=== PATIENT | male | born 2000 | race Caucasian/White ===

== ENCOUNTER 2024-01-12 09:10 | Emergency (ER) | payer BC ==
--- NOTE | 2024-01-12 10:22 | EDPHYS ---
Physician Documentation [facility] Name: Janusz Hayes Age: 23 yrs Sex: Male : 2000 Arrival Date: 01/12/2024 Time: 09:10 Bed 10 Private MD: ED Physician Christopher Oconnell HPI: 01/11 09:26 This 23 yrs old Male presents to ER via Ambulatory with complaints of Cat Bite - attack.bo1 09:26 Secondary to the bite the patient reports Injuries to the left ear, left finger and bo1 right hand.. Historical: - Allergies: 09:20 No Known Allergies; aa5 - PMHx: 09:20 Asthma; Migraine; aa5 - PSHx: 09:20 None; aa5 - Immunization history:: Last tetanus immunization: unknown. - Infectious Disease History:: Denies. - Social history:: Smoking status: Patient denies any tobacco usage or history of. ROS: 10:11 Constitutional: Negative for fever, chills, and weight loss, bo1 Exam: 10:11 ENT: External ear(s): Minor laceration to the left ear lobe- lower area. Approximates, bo1 no need for suture repair., swelling, that is minimal, 10:11 Musculoskeletal/extremity: Minor punctures to the right index finger not involving joints. Multiple minor lacerations/scratches to the hand and other digits. Minor lacerations/scratches to the left index finger. All fingers are FROM with intact NV signs.. Vital Signs: 09:20 BP 129 / 84; Pulse 108; Resp 18 S; Temp 97(TE); Pulse Ox 99% on R/A; Weight 91.63 kg aa5 (R); Height 5 ft. 8 in. (R); 09:20 Body Mass Index 30.71 (91.63 kg, 172.72 cm) aa5 MDM: 09:26 Patient medically screened. bo1 10:16 Differential diagnosis: superficial laceration. ED course: Pt has had a tetanus bo1 vaccination at age 15 and wishes to wait 2 years to be up to date.. 01/11 10:17 Order name: Wound Care; Complete Time: 10:49 bo1 Administered Medications: No medications were administered Disposition Summary: 01/12/24 10:21 Discharge Ordered Notes: Location: Home bo1 Problem: new bo1 Condition: Stable bo1 Diagnosis - Bitten by cat bo1 Followup: bo1 - With: Private Physician - When: 2 - 3 days - Reason: Wound Recheck Discharge Instructions: - Discharge Summary Sheet bo1 Forms: - Medication Reconciliation Form bo1 - Antibiotic Education bo1 - Prescription Opioid Use bo1 - Patient Portal Instructions bo1 - Leadership Thank You Letter bo1 Prescriptions: - Augmentin 875-125 mg Oral Tablet - take 1 tablet ORAL route every 12 hours for 10 days; 20 tablet; Refills: 0, bo1 Product Selection Permitted Signatures: Valerie Cage, RN RN aa5 OeiChristopher MD MD bo1
--- NOTE | 2024-01-12 10:22 | ER ---
Nurse's Notes [facility] Name: Janusz Hayes Age: 23 yrs Sex: Male : 2000 Arrival Date: 01/12/2024 Time: 09:10 Bed 10 Private MD: Diagnosis: Bitten by cat Presentation: 01/11 09:20 Chief complaint: Patient states: "I have a stray cat that had been looking to adopt and aa5 today he freaked out and he bit and scratched me". Bite noted to left earlobe and right palm of hand. No active bleeding noted. 09:20 Coronavirus screen: At this time, the client does not indicate any symptoms associated aa5 with coronavirus-19. Ebola Screen: Patient denies travel to an Ebola-affected area in the 21 days before illness onset. Initial Sepsis Screen: Does the patient meet any 2 criteria? No. Patient's initial sepsis screen is negative. Does the patient have a suspected source of infection? No. Patient's initial sepsis screen is negative. Risk Assessment: Do you want to hurt yourself or someone else? Patient reports no desire to harm self or others. Onset of symptoms was January 12, 2024. 09:20 Acuity: LUCIE 4 aa5 09:20 Method Of Arrival: Ambulatory aa5 Historical: - Allergies: 09:20 No Known Allergies; aa5 - PMHx: 09:20 Asthma; Migraine; aa5 - PSHx: 09:20 None; aa5 - Immunization history:: Last tetanus immunization: unknown. - Infectious Disease History:: Denies. - Social history:: Smoking status: Patient denies any tobacco usage or history of. Screenin:00 [facility] ED Fall Risk Assessment (Adult) History of falling in the last 3 months, hb including since admission No falls in past 3 months (0 pts) Confusion or Disorientation No (0 pts) Intoxicated or Sedated No (0 pts) Impaired Gait No (0 pts) Mobility Assist Device Used No (0 pt) Altered Elimination No (0 pt) Score/Fall Risk Level 0 - 2 = Low Risk Oriented to surroundings, Maintained a safe environment, Educated pt \\T\\ family on fall prevention, incl call for assistance when getting out of bed. Abuse screen: Denies threats or abuse. Denies injuries from another. Nutritional screening: No deficits noted. Tuberculosis screening: No symptoms or risk factors identified. Assessment: 09:49 Reassessment: Reported cat bite to [facility] Department, stated they will aa5 send officer here to speak to patient. . 10:32 Reassessment: Contacted [facility] Department to check for an update, aa5 instructed to provide pt with their telephone number and instruct pt to call PD when he gets home. . 10:46 General: Appears in no apparent distress. Behavior is calm, cooperative. Pain: Pain hb currently is 3 out of 10 on a pain scale. Neuro: Level of Consciousness is awake, alert, obeys commands, Oriented to person, place, time, situation. Cardiovascular: Patient's skin is warm and dry. Respiratory: Respiratory effort is even, unlabored, Respiratory pattern is regular, symmetrical. GI: No signs and/or symptoms were reported involving the gastrointestinal system. : No signs and/or symptoms were reported regarding the genitourinary system. EENT: No signs and/or symptoms were reported regarding the EENT system. Derm: Skin is pink, warm \\T\\ dry. Musculoskeletal: No signs and/or symptoms reported regarding the musculoskeletal system. Injury Description: multiple shallow puncture wounds noted to left ear and left hand, small lacerations noted to left ear, left hand, right forearm, and right hand. Vital Signs: 09:20 BP 129 / 84; Pulse 108; Resp 18 S; Temp 97(TE); Pulse Ox 99% on R/A; Weight 91.63 kg aa5 (R); Height 5 ft. 8 in. (R); 09:20 Body Mass Index 30.71 (91.63 kg, 172.72 cm) aa5 ED Course: 09:11 Patient arrived in ED. im 09:20 Arm band placed on. aa5 09:23 Triage completed. aa5 09:24 Christopher Oconnell MD is Attending Physician. bo1 10:48 Patient has correct armband on for positive identification. Provided Education on: hb wound care, follow up, medications. 10:48 No provider procedures requiring assistance completed. Patient did not have IV access hb during this emergency room visit. 10:49 Wound care: to puncture located on left ear, right hand, left hand and right arm was hb cleansed with CHX and saline Patient tolerated well. Administered Medications: No medications were administered Medication: 10:47 VIS not applicable for this client. hb Outcome: 10:21 Discharge ordered by bo1 10:48 Discharged to home ambulatory, 10:48 Condition: stable 10:48 Discharge instructions given to patient, family, Instructed on discharge instructions, follow up and referral plans. medication usage, Demonstrated understanding of instructions, follow-up care, medications, Prescriptions given X 1, 10:49 Patient left the ED. Signatures: Valerie Cage RN RN aa5 Janna Cuevas RN RN Crystal Rivas Benjamin, MD MD bo1 Corrections: (The following items were deleted from the chart) 09:25 09:20 Chief complaint: Patient states: "I have a stray cat that had been looking to [facility] adopt and today he freaked out and he bit and scratched me". No active bleeding noted. aa5 09:47 09:20 Chief complaint: Patient states: "I have a stray cat that had been looking to [facility] adopt and today he freaked out and he bit and scratched me". Bite noted to left earlobe and right palm of hand. No active bleeding noted. aa5
[2024-01-12 11:21] VITALS: BP 129/84; TEMP 97; O2SAT 99
== END 2024-01-12 10:49 | disposition home or self-care (01) ==
LOC: ER 09:10
DX: S61.230A Puncture wound without foreign body of right index finger without damage to nail, initial encounter (principal); S01.312A Laceration without foreign body of left ear, initial encounter; W55.01XA Bitten by cat, initial encounter

== ENCOUNTER 2025-06-13 06:15 | Emergency (ER) | payer BC ==
--- OUTSIDE RECORDS SUMMARY | 2025-06-13 06:18 | XMS REPORT | Continuity of Care Document ---
Author Name Unknown Address [address] [facility] [place] [address] [facility] [place] Address [address] [facility] [address] [place] [address] Care Team Providers Care Circulation Assistant Name Role Phone Pcp, Patient Does Not Have A Primary Care Physic daily Spencer Dailey MD Attending Clinician SPENCER DAILEY Attending Clinician Unavailgrace Gutierrez RN, Heidi Attending Clinician Unavail able Kaveh Mccoy MD Attending Clinician [phone] SPENCER DAILEY Admitting Clinician UnavailSpencer Mazariegos MD Admitting Clinician Payers Payer Name Policy Type Policy Number Effective Date Expirati on Date Source Problems Condition Name Condition Details Condition Category Status Onset Date Resolution Date Last Treatment Date Treating Clinician Comments Source Obesity (BMI 30-39.9) Obesity (BMI 30-39.9) Disease Active 10-15 00:00: 00 [facility] Acute foreign body of left foot, subsequent encounter Acute foreign body of left foot, subsequent encounter Disease Active 09-26 00:00: 00 [facility] Allergies, Adverse Reactions, Alerts Allergy Name Allergy Type Status Severity Reaction(s) Onset Date Inactive Date Treating Clinician Comments Source LATEX DRUG INGREDI Active Med Swelling 10-15 00:00: 00 [facility] Latex Drug Allergy Active Swelling 10-15 00:00: 00 [facility] NO KNOWN ALLERGIE S Drug Class Active [facility] Social History Social Habit Start Date Stop Date Quantity Comments Source Sexual orientation U [facility] History of Social function 2024-12-16 00:00:00 2024-12-16 00:00:00 [facility] Tobacco use and exposure 2024-09-02 00:00:00 2024-09-02 00:00:00 Smokeless tobacco non-user [facility] Sex assigned at 2000 00:00:00 2000 00:00:00 [facility] Smoking Status Start Date Stop Date Source Never smoked tobacco [facility] Medications Ordered Medication Name Filled Medication Name Start Date Stop Date Current Medication? Ordering Clinician Indication Dosage Frequency Signature (SIG) Comments Components Source HYDROcodone -acetaminop hen 10-325 mg tablet 10-28 00:00: 00 Yes [id number] 1{tbl} Take 1 tablet by mouth every 6 (six) hours as needed for Pain (scale 4-6) or Pain (scale 7-10). Indication s: acute pain [facility] traMADoL 50 mg tablet 10-28 00:00: 00 Yes [id number] 50mg Take 1 tablet by mouth every 6 (six) hours as needed for Pain (scale 4-6) or Pain (scale 7-10). Indication s: acute pain [facility] lactated ringers IV infusion 150 mL 10-15 19:30: 00 10-15 22:13 :14 No 150mL at 75 mL/hr, 150 mL, IV Infusion, CONTINUOUS , Starting on Mon10/15/24 at 1330, Until Mon10/15/24 at 1613, Routine, PACU [facility] hydralAZINE (APRESOLINE ) injection 5 mg 10-15 19:17: 01 10-15 22:13 :13 No 5mg 5 mg, Slow IV Push, Q20MIN PRN, 2 doses, Starting on Mon10/15/24 at 1317, Until Mon10/15/24 at 1613, Routine, Other, SBP > 170mmHg or DBP > 90mmHg, PACU [facility] labetaloL (NORMODYNE) 5 mg/mL injection 5 mg 10-15 19:17: 10-15 22:13 :13 No 5mg 5 mg, Slow IV Push, Q15MIN PRN, 2 doses, Starting on Mon10/15/24 at 1317, Until Mon10/15/24 at 1613, Routine, SBP greater than 170mmHg or DBP greater than 90mmHg., PACU [facility] meperidine (DEMEROL) injection 12.5 mg 10-15 19:17: 10-15 22:13 :14 No 12.5mg 12.5 mg, Slow IV Push, PRN, 1 dose, Starting on Mon10/15/24 at 1317, Until Mon10/15/24 at 1613, Routine, shivering, PACU, Enter indication for use: Reduce postoperat bertin shivering, crew team member approving Restricted medication : ANSC [facility] morpHINE (4 mg/mL) injection 4 mg 10-15 19:17: 10-15 22:13 :14 No 4mg 4 mg, Slow IV Push, [id number], 3 doses, Starting on Mon10/15/24 at 1317, Until Mon10/15/24 at 1613, Routine, Pain (scale 7-10), PACU [facility] FENTanyl (PF) (SUBLIMAZE) injection 25 mcg 10-15 19:17: 10-15 22:13 :14 No 25ug 25 mcg, Slow IV Push, Q5MIN PRN, 4 doses, Starting on Mon10/15/24 at 1317, Until Mon10/15/24 at 1613, Routine, Pain Scale 4-6, PACU [facility] morpHINE injection 2 mg 10-15 19:17: 10-15 22:13 :14 No 2mg 2 mg, Slow IV Push, Q5MIN PRN, 3 doses, Starting on Mon10/15/24 at 1317, Until Mon10/15/24 at 1613, Routine, Pain (scale 4-6), PACU [facility] HYDROcodone -acetaminop hen (NORCO 5) tablet 1 tablet 10-15 19:17: 01 10-15 22:13 :14 No 1{tbl} 1 tablet, Oral, PRN, 1 dose, Starting on Mon10/15/24 at 1317, Until Mon10/15/24 at 1613, Routine, Pain (scale 1-3), PACU [facility] metoclopram anisa HCl (REGLAN) injection 10 mg 10-15 19:17: 01 10-15 22:13 :14 No 10mg 10 mg, Slow IV Push, PRN, 1 dose, Starting on Mon10/15/24 at 1317, Until Mon10/15/24 at 1613, Routine, Nausea and Vomiting (N/V), PACU [facility] ondansetron (ZOFRAN (PF)) injection 10-15 19:00: 00 10-15 19:15 :00 No Slow IV Push, ONCE INTRA PROCEDURE, Starting on Mon10/15/24 at 1300, Until Mon10/15/24 at 1315, Administer over 2-5 Minutes, Intra-op [facility] ketorolac (TORADOL) injection 10-15 19:00: 00 10-15 19:15 :00 No Slow IV Push, ONCE INTRA PROCEDURE, Starting on Mon10/15/24 at 1300, Until Mon10/15/24 at 1315, Routine, Intra-op [facility] metoclopram anisa HCl (REGLAN) injection 10-15 19:00: 00 10-15 19:15 :00 No Intravenou s, ONCE INTRA PROCEDURE, Starting on Mon10/15/24 at 1300, Until Mon10/15/24 at 1315, Routine, Intra-op [facility] bupivacaine (preserv free) (SENSORCAIN E MPF) 0.25 % (2.5 mg/mL) injection 10-15 18:59: 00 10-15 19:15 :21 No PRN, Starting on Mon10/15/24 at 1259, Until Mon10/15/24 at 1315, Routine, Intra-op [facility] dexamethaso ne (DECADRON PHOSPHATE) 4 mg/mL injection 10-15 18:49: 00 10-15 19:15 :00 No IV Push, ONCE INTRA PROCEDURE, Starting on Mon10/15/24 at 1249, Until Mon10/15/24 at 1315, Routine, Intra-op [facility] ceFAZolin (ANCEF) injection 10-15 18:45: 00 10-15 19:15 :00 No Slow IV Push, ONCE INTRA PROCEDURE, Starting on Mon10/15/24 at 1245, Until Mon10/15/24 at 1315, DINA, [facility]-op [facility] propofoL IV infusion 10-15 18:40: 00 10-15 19:15 :00 No Slow IV Push, ONCE INTRA PROCEDURE, Starting on Mon10/15/24 at 1240, Intra-op [facility] lidocaine 1% (XYLOCAINE) 100 mg/10 mL (1 %) injection 10-15 18:40: 00 10-15 19:15 :00 No Slow IV Push, ONCE INTRA PROCEDURE, Starting on Mon10/15/24 at 1240, Until Mon10/15/24 at 1315, Routine, Intra-op [facility] midazolam (VERSED) injection 10-15 18:37: 00 10-15 19:15 :00 No IV Push, ONCE INTRA PROCEDURE, Starting on Mon10/15/24 at 1237, Until Mon10/15/24 at 1315, Routine, Intra-op [facility] FENTanyl (PF) (SUBLIMAZE) injection 10-15 18:37: 00 10-15 19:15 :00 No Slow IV Push, ONCE INTRA PROCEDURE, Starting on Mon10/15/24 at 1237, Until Mon10/15/24 at 1315, Routine, Intra-op [facility] lactated ringers IV infusion 1,000 mL 10-15 15:00: 10-15 18:37 :00 No 1000mL at 42 mL/hr, 1,000 mL, IV Infusion, ONCE, 1 dose, On Mon10/15/24 at 0900, Routine, DSU Pre-op [facility] methocarbam oL 750 mg tablet 10-15 00:00: 00 11-15 05:59 :00 No [id number] 750mg Take 1 tablet by mouth in the morning and 1 tablet at noon and 1 tablet in the evening. Do all this for 30 days. [facility] aspirin 325 mg tablet 10-15 00:00: 11-13 05:59 :00 No [id number] 325mg Take 1 tablet by mouth in the morning and 1 tablet in the evening. Take with meals. Do all this for 28 days. [facility] docusate 100 mg capsule 10-15 00:00: 00 10-26 05:59 :00 No [id number] 100mg Take 1 capsule by mouth in the morning and 1 capsule in the evening. Do all this for 10 days. [facility] ondansetron (ZOFRAN) 4 mg tablet 10-15 00:00: 00 10-26 05:59 :00 No [id number] 4mg Take 1 tablet by mouth every 6 (six) hours for 10 days. [facility] traMADoL 50 mg tablet 10-15 00:00: 10-23 05:59 :00 No [id number] 50mg Take 1 tablet by mouth every 6 (six) hours as needed for Pain (scale 4-6) or Pain (scale 7-10) for up to 7 days. Indication s: acute pain [facility] HYDROcodone -acetaminop hen 10-325 mg tablet 10-15 00:00: 00 10-23 05:59 :00 No [id number] 1{tbl} Take 1 tablet by mouth every 6 (six) hours as needed for Pain (scale 4-6) or Pain (scale 7-10) for up to 7 days. Indication s: acute pain [facility] nortriptyli ne 10 mg capsule 2023-09 00:00: 00 Yes 10mg Take 1 capsule by mouth in the morning. [facility] Vital Signs Vital Name Observation Time Observation Value Comments [facility] Systolic blood pressure 2024-12-16 16:15:00 107 mm[Hg] [facility] Diastolic blood pressure 2024-12-16 16:15:00 80 mm[Hg] [facility] Heart rate 2024-12-16 16:15:00 71 /min [facility] Body temperature 2024-12-16 16:15:00 36.28 Radah [facility] Body height 2024-12-16 16:15:00 172.7 cm [facility] Body weight 2024-12-16 16:15:00 96.843 kg [facility] BMI 2024-12-16 16:15:00 32.46 kg/m2 [facility] Systolic blood pressure 2024-10-28 17:41:00 129 mm[Hg] [facility] Diastolic blood pressure 2024-10-28 17:41:00 87 mm[Hg] [facility] Heart rate 2024-10-28 17:41:00 100 /min [facility] Body temperature 2024-10-28 17:41:00 36.17 Radha [facility] Body height 2024-10-28 17:41:00 172.7 cm [facility] Body weight 2024-10-28 17:41:00 94.348 kg [facility] BMI 2024-10-28 17:41:00 31.63 kg/m2 [facility] Systolic blood pressure 2024-10-15 20:00:00 120 mm[Hg] [facility] Diastolic blood pressure 2024-10-15 20:00:00 76 mm[Hg] [facility] Heart rate 2024-10-15 20:00:00 94 /min [facility] Respiratory rate 2024-10-15 20:00:00 16 /min [facility] Oxygen saturation in Arterial blood by Pulse oximetry 2024-10-15 20:00:00 96 /min [facility] Body temperature 2024-10-15 19:15:00 36.78 Radha [facility] BMI 2024-10-15 15:22:00 31.63 kg/m2 [facility] Body height 2024-10-15 15:22:00 172.7 cm [facility] Body weight 2024-10-15 15:22:00 94.348 kg [facility] Systolic blood pressure 2024-10-15 15:23:00 121 mm[Hg] [facility] Diastolic blood pressure 2024-10-15 15:23:00 87 mm[Hg] [facility] Heart rate 2024-10-15 15:23:00 79 /min [facility] Body temperature 2024-10-15 15:22:00 36.67 Radha [facility] Respiratory rate 2024-10-15 15:22:00 16 /min [facility] Body height 2024-10-15 15:22:00 172.7 cm [facility] Body weight 2024-10-15 15:22:00 94.348 kg [facility] BMI 2024-10-15 15:22:00 31.63 kg/m2 [facility] Oxygen saturation in Arterial blood by Pulse oximetry 2024-10-15 15:22:00 98 /min [facility] Procedures Procedure Date / Time Performed Performing Clinicia n Source XR FOOT 3+ VW LEFT 2024-12-16 17:21:52 Nellie Gaming Machado [facility] XR FOOT 3+ VW LEFT 2024-10-28 17:32:08 Martin Dailey od [facility] [place] TIME OR (NON-REPORTABLE) 2024-10-15 19:10:00 Spencer Dailey [facility] [place] TIME OR (NON-REPORTABLE) 2024-10-15 19:10:00 Spencer Dailey [facility] INTUBATION 2024-10-15 18:42:00 Kaveh Mccoy [facility] OSTEOTOMY 2024-10-15 18:23:00 Spencer Dailey [facility] Encounters Start Date/Time End Date/Time Encounter Type Admission Type Attending [facility] Care Facility Care Department Encounter ID Source 2024-12-16 12:04:15 2024-12-16 23:59:00 Hospital Encounter Spencer Dailey AT [place] [id number] [id number] [facility] 2024-12-16 11:20:00 2024-12-16 12:21:51 Office Visit Spencer Dailey [facility] [id number] [id number] [id number] [id number] [facility] 2024-10-28 11:19:21 2024-10-28 23:59:00 Hospital Encounter Spencer Dailey [facility] [id number] [id number] [id number] [id number] [facility] 2024-10-28 11:30:00 2024-10-28 12:22:36 Office Visit Spencer Dailey [facility] [id number] [id number] [id number] [id number] [facility] 2024-10-17 00:00:00 2024-10-17 11:46:50 Telephone Spencer Dailey [facility] [id number] [id number] [id number] [id number] [facility] 2024-10-15 08:36:00 2024-10-15 14:12:00 Outpatient R SPENCER DAILEY SOR [id number] [facility] 2024-10-15 08:36:00 2024-10-15 14:12:00 Hospital Encounter Spencer Dailey [facility] [id number] [id number] [id number] [id number] [facility] 2024-10-15 12:37:00 2024-10-15 13:14:00 Anesthesia Event Heidi Gutierrez Dave RodriguezEduarHeidi KAL AT [place] [id number] [id number] [id number] [id number] [facility] 2024-10-15 10:43:00 2024-10-15 11:37:00 Surgery Spencer Dailey [facility] [place] [id number] [id number] [id number] [id number] [facility] Results Test Description Test Time Test Comments Results Result Comments Source XR Foot 3+ vw left 19:50:50 EXAM: XR FOOT 3+ VW LEFT HISTORY: post op weightbearing COMPARISON: 10/28/2024. FINDINGS: Radiographs of the left foot demonstrate no acute fracture or dislocation.Unchanged alignment of the mildly displaced fifth metatarsal osteotomy isnoted. No bridging callus formation is seen with early neocortex formationabout the fracture margins. The joint spaces are preserved. Mild lateralforefoot soft tissue swelling. [facility] XR Foot 3+ vw left 21:53:51 EXAM: XR FOOT 3+ VW LEFT HISTORY: foot pain COMPARISON: Radiographs, 09/02/2024. MRI, 09/17/2024. FINDINGS: Radiographs of the left foot demonstrate no acute fracture or dislocation.Interval left fifth metatarsal neck osteotomy post surgical changes areseen with adjacent soft tissue swelling.The joint spaces are preserved. [facility] [place] Time OR(non-reportab le) 19:33:54 These images do not require a Radiology diagnostic report. [facility] [place] Time OR(non-reportab le) 19:33:54 These images do not require a Radiology diagnostic report. [facility] Intubation 18:42:00 Kaveh Mccoy MD ? ? 10/15/2024 ?1:17 PMIntubationDate/Time: 10/15/2024 12:42 PMUrgency: elective Airway not difficult General Information and Staff Patient location during procedure: ORPerformed: anesthesiologist Performed by: Kaveh Mccoy MDAuthorized by: Kaveh Mccoy MD ? Indications and Patient ConditionIndications for airway management: anesthesiaSpontaneous Ventilation: absentSedation level: deepPreoxygenated: yesPatient position: sniffingMILS maintained throughoutMask difficulty assessment: 1 - vent by mask Final Airway DetailsFinal airway type: supraglottic airway Successful airway: Size 4 Number of attempts at approach: 1Ventilation between attempts: noneNumber of other approaches attempted: 0 Additional CommentsSmooth, atraumatic, dentition and lips unchanged from pre-op. [facility] History and Physical Notes Date/Time Note Provider Source 2024-10-15 09:15:01 Interval History and Physical Date of Service: 10/15/2024 Wt 97.5 kg (215 lb) | BMI 32.69 kg/m? Vitals: 10/01/24 1506 Weight: 97.5 kg (215 lb) Kathya Hayes was interviewed and examined today in the DSU/holding area/operating room before induction of anesthesia. There have been no significant interval changes in the history or physical exam. Informed consent discussed with the patient, including: condition, proposed care, treatments and services, alternative forms of treatment, and risks of no treatment. Details discussed around the procedures to be used, and the risks and hazards involved, potential benefits, and side effects of the patient s proposed care, treatment, and services; the likelihood of the patient achieving his or her goals; and any potential problems that might occur during recuperation. Reasonable alternative also discussed with the patient s proposed care, treatment, and services. The discussion encompasses risks, benefits, and side effects related to the alternative and risks related to not receiving the proposed care, treatment, and services. The patient voiced understanding of the proposed intervention(s), as well as risks, benefits, alternatives. he wishes to proceed. - OR today for L Bunionnetectomy (5th MT partial head resection and neck osteotomy) Intraoperative fluoroscopy assessment - NPO - Consent in chart - [facility] Note 10/15/2024 09:15 CC: L foot pain HPI Kathya Hayes is a 24 year old male who presents to the clinic as a new patient for the evaluation of the chief complaint above. S/p L Lateral forefoot pain and bruising after falling in 11/2023. Head of L 5th MT pain w/WB. Saw orthopedic physician outside of [facility] who suggested f/u w/ Dr Dailey. No fevers/chills, no recent illness, chest pain/SOB, nausea/vomiting, new numbness, tingling, weakness No diabetes; no blood clots or bleeding disorders Interval History 09/26/2024: Kathya Hayes presents for routine follow up. Pt is having cont. pain to L lateral forefoot. Pain is hindering ADL. Past Medical History: No past medical history on file. Past Surgical History: Patient has no past surgical history on file. Medications: Current Facility-Administered Medications Medication Dose Route Frequency Last Rate Last Admin lactated ringers IV infusion 1,000 mL 1,000 mL IV Infusion ONCE Allergies: No Known Allergies Review of Systems Per HPI General Physical Examination: General: NAD, AOx3 Specific Physical Examination: L Lower Extremity Inspection: TTP over head of 5th MT head NTTP inferior midfoot, superior midfoot Normal peripheral perfusion SILT Sa/Potter/SP/DP/T nerve distributions Motor exam: WNL Imaging: MR: 09/17/24: wo contrast of L foot: IMPRESSION No acute osseous abnormality. Plantar forefoot foreign bodies versus artifact. Intermetatarsal bursitis between the first and second metatarsal heads. XR: 3v foot and ankle of the above laterality shows no acute fx No final results containing an impression from the past 30 days were found. The radiology image(s) interpreted personally by myself and my supervising faculty 10/15/2024 09:15 Assessment/Diagnosis: No diagnosis found. Plan: I have discussed the patient's physical exam and reviewed their x-rays and imaging with them in detail. All questions have been answered. We have talked about all the treatment options and have agreed upon: -WBAT LLE in boot -Pain: otc -Orthotics: short boot -Heat therapy -Compression stockings - Discussed risks and benefits of foreign body removal -Vitamin C, D, and Calcium supplementation - Follow-up Post OP Patient has attempted conservative management such as anti-inflammatory medication, therapy, shoe modification and support without relief and wishes to pursue more aggressive treatment. The following procedures are planned: L Bunionnetectomy (5th MT partial head resection and neck osteotomy) Intraoperative fluoroscopy assessment 5 min Ant[place] A clear explanation was given to the patient regarding the condition present, and the available conservative and surgical options. It was emphasized that the risks and benefits of surgery include but are not limited to infection, wound healing problems, damage to adjacent structures such as nerves, blood vessels and tendons, terminal make up operator disability and pain, arthritis, hypersensitivity, deep vein thrombosis, pulmonary embolism, broken hardware, failure of surgery, need for further procedures at time of surgery or later, cast related problems, loss of limb or life. The patient was given an explanation and the patient voiced understanding of what to expect after the surgery, the limitations, the likely duration for post operative recovery and the instructions that are to be followed. At the end the patient was invited to seek clarification or ask further questions but there were none. The patient voiced understanding of the entire consultation and was given contact details to get in touch with us or emergency services as and when needed. Informed consent discussed with the patient, including: condition, proposed care, treatments and services, alternative forms of treatment, and risks of no treatment. Details discussed around the procedures to be used, and the risks and hazards involved, potential benefits, and side effects of the patient s proposed care, treatment, and services; the likelihood of the patient achieving his or her goals; and any potential problems that might occur during recuperation. Reasonable alternative also discussed with the patient s proposed care, treatment, and services. The discussion encompasses risks, benefits, and side effects related to the alternative and risks related to not receiving the proposed care, treatment, and services. TBD 10 minutes were spent face to face with the patient, reviewing the chart, placing orders and completing the note The time spent for patient care includes: Obtaining and/or reviewing separately obtained history (Care Everywhere or paper records), Performing a medically appropriate examination and/or evaluation, and Counseling and educating the patient/family/caregiver. Scribe's Attestation I, Lois García , am scribing for, and in the presence of, Spencer Dailey MD who performed the services described here-in. Lois García, September 26, 2024, 1:19 PM Physician's Attestation I, Celina Gutierrez MD, personally performed the services described in this documentation as scribed by Lois García in my presence and it is both accurate and complete. Celina Gutierrez MD September 26, 2024 5:32 PM NTION ATTENDANT Associated attestation - Spencer Dailey MD - 10/15/2024 9:56 AM DETENTION ATTENDANT Please see my dictated H+P / pre op note and post op notes within the dictated 'operation note' document. I have actively participated in clinical care and have examined and interviewed the patient and supervised procedures on the date of service to the patient and I agree with the attached residents entire note except above. [facility] Procedure Notes Date/Time Note Provider Source 2024-10-15 13:17:02 Associated Order(s): Intubation Intubation Date/Time: 10/15/2024 12:42 PM Urgency: elective Airway not difficult General Information and Staff Patient location during procedure: OR Performed: anesthesiologist Performed by: Kaveh Mccoy MD Authorized by: Kaveh Mccoy MD Indications and Patient Condition Indications for airway management: anesthesia Spontaneous Ventilation: absent Sedation level: deep Preoxygenated: yes Patient position: sniffing MILS maintained throughout Mask difficulty assessment: 1 - vent by mask Final Airway Details Final airway type: supraglottic airway Successful airway: Size 4 Number of attempts at approach: 1 Ventilation between attempts: none Number of other approaches attempted: 0 Additional Comments Smooth, atraumatic, dentition and lips unchanged from pre-op. NTION ATTENDANT [facility] Notes Date/Time Note Provider Source 2024-10-17 11:39:10 Spoke with pt who states pain level is 3/10. He reports pain at 8 last night, but has since been revld from the bandage being loosened. Encouraged to keep LLE elevated above the heart, may use ice tid x 20 minutes. Also may use the norco alternating with tramadol and methocarbamol 3 x daily as well. Denies numbness, tingling, drainage from the site. He has been moving foot and wiggling toes. 911 precautions given with verbalization of his understanding. Routing to physician for notification AEL Murphy LVN [facility] 2024-10-17 09:28:01 Kathya Hayes is a 24 year old male Mom calling calling about medication intake . Asking if she can take something else with hydrocodone . Example: tylenol and hydrocodone at the same time. He is in a lot of pain. Taking tramadol and hydrocodone alone does not help the pain . Mom took bandage off for a bit and replaced loosely and that helped with the pain . Please call mom [phone] AEL Amador [facility] 2024-10-15 13:32:10 Patient: Kathya Hayes Procedure Summary Date: 10/15/24 Room / Location: [address] LOCATION Anesthesia Start: 1237 Anesthesia Stop: 1314 Procedure: OSTEOTOMY (Left: Feet) Diagnosis: Acute foreign body of left foot, subsequent encounter (Acute foreign body of left foot, subsequent encounter [S90.852D]) Surgeons: Spencer Dailey MD Responsible Provider: Kaveh Mccoy MD Anesthesia Type: General ASA Status: 2 Anesthesia Type: General Last vitals BP 112/67 (10/15/24 1330) Temp 36.8 ?C (98.2 ?F) (10/15/24 1315) Pulse 97 (10/15/24 1330) Resp 20 (10/15/24 1330) SpO2 96 % (10/15/24 1330) There were no known notable events for this encounter. Anesthesia Post Evaluation Patient participation: complete - patient participated Level of consciousness: awake and alert Pain management: satisfactory to patient Airway patency: patent Cardiovascular status: acceptable and blood pressure returned to baseline Respiratory status: acceptable Hydration status: acceptable [facility] 2024-10-15 12:57:00 BRIEF OPERATIVE NOTE Date of Surgery: 10/15/2024 Surgeons and Role: * Spencer Dailey MD - Primary * Vick Rodrigues DO - Fellow Pre-Op Diagnosis: Acute foreign body of left foot, subsequent encounter [S90.852D] Post-Op Diagnosis Codes: * Acute foreign body of left foot, subsequent encounter [S90.852D] Procedures: Procedure(s) (LRB): OSTEOTOMY (Left) CPT: , Any Complications Encounters: none Estimated Blood Loss: 20 cc Specimens Removed: * No specimens in log * * No implants in log * Patient's Condition: good Findings: 5th MT resection Any other important information: none Please see dictated operative report for additional detail. [facility] 2024-10-10 14:13:18 Images from the original note were not included. Procedure is at: [place] [id number]. The Day Surgery is location on the left corner of [facility] closest to the on license of [facility]. On that NW corner you will see a sign that states "Surgery". Please go inside that door and sign in at that desk. Do not eat anything the morning of your procedure starting at Midnight or 8 hours before arrival time, which ever is longer. We encourage you to drink plenty of water, Sprite or Gatorade the morning of the procedure, but only up until a certain point. Do not drink anything within 2 hours of your arrival. You may take your medications as instructed below with a sip of water unless otherwise directed by physician. . MAC Cases may continue Diuretics. Report to [facility], [address] [place] [address], Day Surgery Unit on 10/15/24 [facility] will call you the business day before your procedure to let you know what time to arrive. Please note: You may not travel home alone and that includes in a taxi, bus, or Uber. We must speak to your Responsible Adult before your procedure the morning of your procedure. No eye make-op, no false eye lashes, and nothing in your hair other than an elastic band, if needed. No lotions, powders, perfumes. No deodorants for breast and shoulders surgeries. Patient verbalized understanding of preop screening instructions. [facility] 2024-10-01 15:05:25 Name/ MRN / Age / Gender: Kathya Hayes, [id number] 24 year old male BMI: Estimated body mass index is 32.69 kg/m? as calculated from the following: Height as of 09/02/24: 1.727 m (5' 8"). Weight as of 09/02/24: 97.5 kg (215 lb). Allergies: Patient has no known allergies. Last Vitals: BP Readings from Last 1 Encounters: 09/02/24 (!) 148/105 Pulse Readings from Last 1 Encounters: 09/02/24 105 SpO2 Readings from Last 1 Encounters: No data found for SpO2 Date of Surgery: 10/15/2024 Surgeon: Spencer Dailey MD Procedure: REMOVAL FOREIGN BODY LOWER EXTREMITY (Left) OR Location: [facility] OR LOCATION Anesthesia Preop Eval (physical exam) Anesthesia Preop: Chart Review and [id number] [facility] questionnaire answers incorporated NPO Status Verified Anesthesia History Anesthesia History Negative Anesthesia History Negative per Chart Review Previous Anesthetics/Airways Cardiovascular Cardiovascular ROS Negative per Chart Review Pulmonary Negative Pulmonary ROS Pulmonary ROS Negative per Chart Review Neuro/Musculoskeletal Negative Neuro/Musculosketal ROS Comments: CC: Left foot pain S/p L Lateral forefoot pain and bruising after falling in 11/2023. Head of L 5th MT pain w/WB. Imaging: MR: 09/17/24: wo contrast of L foot: IMPRESSION No acute osseous abnormality. Plantar forefoot foreign bodies versus artifact. Intermetatarsal bursitis between the first and second metatarsal heads. 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 Hold on DOS. Phentermine: Alert [facility] anesthesiologist SGLT2 Inhibitors: "gliflozins" to be held for 3 days prior to elective surgeries GLP1 Agonosit: stop 7 days prior to surgery MAC Cases: Continue taking LESLEY inhibitors and ARBs ASA Classification ASA: 2 Labs: Chemistry - CBC - - - - - - - - - - - - eGFR: - Date: - ANC: - Date: - LFTs - Coags AST: - AP: - Prot: - Ca: - PT: - Date: - ALT: - T Gary: - Alb: - PTT: - Date: - PO4: - Date: - INR: - Date: - Cardiac Endocrine & other pBNP: - Date: - A1C: - Date: - Trop I: - Date: - POCT A1C: - Date: - CK: - Date: - TSH: - Date: - CKMB: - Date: - FT4: - Date: - LDL: - Date: - Lact: - Date: - Procal: - Date: - Respiratory -|-|-|-|- D-dimer: - ABG Date: - Date: - Miscellaneous Type and Screen: - Antibody: - Date: - POCT : - Date: - Current Medications: No current facility-administered medications for this encounter. No current outpatient medications on file. Previous Surgeries: No past surgical history on file. Anesthesia Physical Exam General alert and oriented x 3 Neuro/Psych neurological Dental no notable dental hx permanent hardware Abdominal GI exam normal Airway Mallampati score:II TM distance:> 5 cm NECK: short and thick Neck ROM: full Mouth opening:normal Extremity Normal extremity Pulmonary pulmonary exam normal Other Cardiovascular cardiovascular exam normal Anesthesia Plan ASA Status: 2 Plan discussed during pre-op evaluation: General Anesthetic plan on DOS: General Plan to include: IV induction Post-Operative Analgesia: routine analgesia & antiemetics Recovery Plan: PACU Additional comments: [facility]
[2025-06-13] MEDS ORDERED: ALBUTEROL 2.5 MG/3 ML NEB SOL ONE (06:43)
[2025-06-13] MEDS ORDERED: IPRATROPIUM BROM 0.5MG/2.5ML ONE (06:43)
--- NOTE | 2025-06-13 07:45 | RAD REPORT ---
EXAMINATION: ONE VIEW CHEST XR CLINICAL INDICATION: COUGH TECHNIQUE: Frontal chest projection is submitted. Examination is limited by patient positioning and t echnique. COMPARISON: No prior exam. FINDINGS: The lungs are well inflated and clear. The heart is upper limit of normal in size. No displaced fract ures identified. IMPRESSION: No acute intrathoracic abnormalities.
[2025-06-13] MEDS ORDERED: AZITHROMYCIN 250 MG TAB ONE (08:57)
[2025-06-13] MEDS ORDERED: IBUPROFEN 400 MG TAB ONE (08:57)
--- NOTE | 2025-06-13 09:07 | EDPHYS ---
Physician Documentation [facility] Name: Janusz Hayes Age: 25 yrs Sex: Male : 2000 Arrival Date: 06/13/2025 Time: 06:15 Bed 19 Private MD: Adrian Fox ED Physician Carlos Funes HPI: 06/13 09:00 This 25 yrs old Male presents to ER via Ambulatory with complaints of michelle Chemical Inhalation. 09:00 The patient has shortness of breath at rest, with light activity. Onset: The michelle symptoms/episode began/occurred 2 day(s) ago. Duration: The symptoms are continuous, and are unchanged since they started. The patient's shortness of breath is aggravated by coughing, is alleviated by nebulizer treatment, rest, application of supplemental oxygen. The patient presents to the emergency department with wheezing, Current therapy: albuterol inhaler, albuterol nebs, oral steroids, that began chemical. Modifying factors: The symptoms are alleviated by cool environment, the symptoms are aggravated by damp environment, heat, talking. The patient or guardian reports cough, that is intermittent, flu symptoms. Modifying factors: The symptoms are alleviated by changing position, elevating head, remaining still, the symptoms are aggravated by activity, lying flat. Historical: - Allergies: 06:37 No Known Allergies; ha1 - PMHx: 06:37 Asthma; Migraine; ha1 - Immunization history:: Adult Immunizations up to date. - Infectious Disease History:: Denies. - Social history:: Smoking status: Reported history of juuling and/or vaping. - Family history:: not pertinent. ROS: 09:00 Constitutional: Negative for fever, chills, and weight loss, Eyes: Negative for injury, michelle pain, redness, and discharge, ENT: Negative for injury, pain, and discharge, Neck: Negative for injury, pain, and swelling, Cardiovascular: Negative for chest pain, palpitations, and edema, Abdomen/GI: Negative for abdominal pain, nausea, vomiting, diarrhea, and constipation, Back: Negative for injury and pain, : Negative for injury, bleeding, discharge, and swelling, MS/Extremity: Negative for injury and deformity, Skin: Negative for injury, rash, and discoloration, Neuro: Negative for headache, weakness, numbness, tingling, and seizure, Psych: Negative for depression, anxiety, suicide ideation, homicidal ideation, and hallucinations, Allergy/Immunology: Negative for hives, rash, and allergies, Endocrine: Negative for neck swelling, polydipsia, polyuria, polyphagia, and marked weight changes, Hematologic/Lymphatic: Negative for swollen nodes, abnormal bleeding, and unusual bruising, 09:00 Respiratory: Positive for cough, shortness of breath, at rest. Exam: 09:02 Constitutional: This is a well developed, well nourished patient who is awake, alert, michelle and in no acute distress. Head/Face: Normocephalic, atraumatic. Eyes: Pupils equal round and reactive to light, extra-ocular motions intact. Lids and lashes normal. Conjunctiva and sclera are non-icteric and not injected. Cornea within normal limits. Periorbital areas with no swelling, redness, or edema. ENT: Nares patent. No nasal discharge, no septal abnormalities noted. Tympanic membranes are normal and external auditory canals are clear. Oropharynx with no redness, swelling, or masses, exudates, or evidence of obstruction, uvula midline. Mucous membranes moist. Neck: Trachea midline, no thyromegaly or masses palpated, and no cervical lymphadenopathy. Supple, full range of motion without nuchal rigidity, or vertebral point tenderness. No Meningismus. Chest/axilla: Normal chest wall appearance and motion. Nontender with no deformity. No lesions are appreciated. Cardiovascular: Regular rate and rhythm with a normal S1 and S2. No gallops, murmurs, or rubs. Normal PMI, no JVD. No pulse deficits. Respiratory: Lungs have equal breath sounds bilaterally, clear to auscultation and percussion. No rales, rhonchi or wheezes noted. No increased work of breathing, no retractions or nasal flaring. Abdomen/GI: Soft, non-tender, with normal bowel sounds. No distension or tympany. No guarding or rebound. No evidence of tenderness throughout. Back: No spinal tenderness. No costovertebral tenderness. Full range of motion. Skin: Warm, dry with normal turgor. Normal color with no rashes, no lesions, and no evidence of cellulitis. MS/ Extremity: Pulses equal, no cyanosis. Neurovascular intact. Full, normal range of motion., bilateral aka Neuro: Awake and alert, GCS 15, oriented to person, place, time, and situation. Cranial nerves II-XII grossly intact. Motor strength 5/5 in all extremities. Sensory grossly intact. Cerebellar exam normal. Normal gait. Psych: Awake, alert, with orientation to person, place and time. Behavior, mood, and affect are within normal limits. 09:02 Musculoskeletal/extremity: DVT Exam: No signs of deep vein thrombosis. no pain, no swelling, no tenderness, negative Homans' sign noted on exam, no appreciated bluish discoloration, no erythema, no increased warmth, Vital Signs: 06:30 BP 143 / 100; Pulse 79; Resp 18 S; Temp 98.7; Pulse Ox 100% on R/A; Weight 97.52 kg; ha1 Height 5 ft. 8 in. ; Pain 5/10; 08:14 BP 142 / 83; Pulse 99; Resp 16; Pulse Ox 96% ; bp 06:30 Body Mass Index 32.69 (97.52 kg, 172.72 cm) ha1 06:30 Pain Scale: Adult ha1 MDM: 06:40 Medical Screening Exam initiated sp3 07:06 Medical Screening Exam initiated [facility] 09:03 Differential diagnosis: Anxiety Reaction asthma, Bronchitis CHF exacerbation, Chronic michelle Obstructive Pulmonary Disease obstructed airway, bronchitis, flu, URI, acute asthma, exercise-induced asthma, reactive airway, foreign body, pneumonia, Pneumothorax reactive airway disease. Antibiotic administration: The patient is discharged and will get outpatient antibiotics, Zithromax. Immunization status:. Data reviewed: vital signs, nurses notes, radiologic studies, plain films. Consideration of Admission/Observation Escalation of care including admission/observation considered. I considered the following discharge prescriptions or medication management in the emergency department Medications were administered in the Emergency Department. See MAR. Independent interpretation of the following test(s) in the Emergency Department X-Ray: My interpretation is cxr see report. Test considered but Not performed: Labs: no labs. Counseling: I had a detailed discussion with the patient and/or guardian regarding the historical points, exam findings, and any diagnostic results supporting the discharge/admit diagnosis, radiology results, the need for outpatient follow up, for definitive care, a family practitioner, a activities specialist. 06/13 06:40 Order name: CXR XRAY; Complete Time: 08:19 sp3 Administered Medications: 06:47 Drug: DuoNeb Nebulize (3:1) (2.5 mg - 0.5 mg) 3 ml Nebulizer once Route: Nebulizer; kd3 09:21 Follow up: Response: No adverse reaction bp 09:00 Drug: AZITHromycin PO 500 mg PO once Route: PO; bp 09:21 Follow up: Response: No adverse reaction bp 09:00 Drug: Ibuprofen PO 800 mg PO once Route: PO; bp 09:21 Follow up: Response: No adverse reaction bp Disposition Summary: 06/13/25 09:07 Discharge Ordered Notes: Location: Home [facility] Problem: new michelle Symptoms: have improved michelle Condition: Stable michelle Diagnosis - Mild persistent asthma with (acute) exacerbation michelle - Cough variant asthma michelle Followup: michelle - With: Adrian Fox MD - When: 2 - 3 days - Reason: Recheck today's complaints, Continuance of care, Re-evaluation by your physician Followup: michelle - With: Wilfredo Call MD - When: 2 - 3 days - Reason: Recheck today's complaints, Re-evaluation by your physician Discharge Instructions: - Discharge Summary Sheet michelle - Asthma, Adult michelle - How to Use a Metered Dose Inhaler michelle - Asthma Attack michelle - Asthma, Adult, [id number] [facility] - Cough, Adult [facility] Forms: - Medication Reconciliation Form michelle - Antibiotic Education michelle - Prescription Opioid Use [facility] - Patient Portal Instructions [facility] - Leadership Thank You Letter [facility] Prescriptions: - Tessalon Perles 100 mg Oral capsule - take 2 capsule ORAL route every 8 hours As needed; 30 capsule; Refills: 0, [facility] Product Selection Permitted - Zithromax 500 mg Oral Tablet - take 1 tablet ORAL route once daily for 5 days; 5 tablet; Refills: 0, Product [facility] Selection Permitted Signatures: Dispatcher [employer] EDMS Carlos Funes MD MD cha Peltier, Brian RN RN bp Missy Galvan MD MD sp3 Alina Pierre RN RN kd3 Ebonie Ricketts RN RN ha1 Corrections: (The following items were deleted from the chart) 06:40 06:40 Chest Single View+[email or web address] ordered. EDDE EDMS
--- NOTE | 2025-06-13 09:07 | ER ---
Nurse's Notes [facility] Name: Janusz Hayes Age: 25 yrs Sex: Male : 2000 Arrival Date: 06/13/2025 Time: 06:15 Bed 19 Private MD: Adrian Fox Diagnosis: Mild persistent asthma with (acute) exacerbation;Cough variant asthma Presentation: 06/13 06:30 Chief complaint: Patient states: TWO DAYS AGO WAS CLEANING THE BATHROOM WITH CHLORAX ha1 AND ALCOHOL, FEELING CHEST PAIN, SORE THROAT. HAS BEEN USING INHALER AND STEROIDS BUT SYMPTOMS NOT IMPROVING. 06:30 Coronavirus screen: Client denies travel out of the [place] in the last 14 days. Ebola ha1 Screen: No symptoms or risks identified at this time. Initial Sepsis Screen: Does the patient meet any 2 criteria? No. Patient's initial sepsis screen is negative. Does the patient have a suspected source of infection? No. Patient's initial sepsis screen is negative. Risk Assessment: Do you want to hurt yourself or someone else? Patient reports no desire to harm self or others. Onset of symptoms was June 13, 2025. 06:30 Method Of Arrival: Ambulatory ha1 06:30 Acuity: LUCIE 3 ha1 Triage Assessment: 06:37 General: Appears uncomfortable, Behavior is calm, cooperative. Pain: Complains of pain ha1 in chest Pain currently is 5 out of 10 on a pain scale. Quality of pain is described as aching. Neuro: Level of Consciousness is awake, alert, obeys commands, Oriented to person, place, time, situation. Cardiovascular: Capillary refill < 3 seconds Patient's skin is warm and dry. Respiratory: Reports CHEMICAL INHALATION Airway is patent Trachea midline Respiratory effort is even, unlabored, Respiratory pattern is regular, symmetrical, Onset: The symptoms/episode began/occurred yesterday, the patient has moderate shortness of breath. GI: No signs and/or symptoms were reported involving the gastrointestinal system. : No signs and/or symptoms were reported regarding the genitourinary system. Derm: Skin is pink, warm \T\ dry. Musculoskeletal: Circulation, motion, and sensation intact. Range of motion: intact in all extremities. Historical: - Allergies: 06:37 No Known Allergies; ha1 - PMHx: 06:37 Asthma; Migraine; ha1 - Immunization history:: Adult Immunizations up to date. - Infectious Disease History:: Denies. - Social history:: Smoking status: Reported history of juuling and/or vaping. - Family history:: not pertinent. Screenin:21 [facility] ED Fall Risk Assessment (Adult) History of falling in the last 3 months, bp including since admission No falls in past 3 months (0 pts) Confusion or Disorientation No (0 pts) Intoxicated or Sedated No (0 pts) Impaired Gait No (0 pts) Mobility Assist Device Used No (0 pt) Altered Elimination No (0 pt) Score/Fall Risk Level 0 - 2 = Low Risk Oriented to surroundings. Abuse screen: Denies threats or abuse. Denies injuries from another. Nutritional screening: No deficits noted. Tuberculosis screening: No symptoms or risk factors identified. Assessment: 07:00 General: SEE TRIAGE NOTE. bp 09:21 Cardiovascular: Rhythm is sinus rhythm. Respiratory: Airway is patent Breath sounds are bp clear bilaterally. Vital Signs: 06:30 BP 143 / 100; Pulse 79; Resp 18 S; Temp 98.7; Pulse Ox 100% on R/A; Weight 97.52 kg; ha1 Height 5 ft. 8 in. ; Pain 5/10; 08:14 BP 142 / 83; Pulse 99; Resp 16; Pulse Ox 96% ; bp 06:30 Body Mass Index 32.69 (97.52 kg, 172.72 cm) ha1 06:30 Pain Scale: Adult ha1 ED Course: 06:19 Patient arrived in ED. gm2 06:20 Adrian Fox MD is Private Physician. gm2 06:37 Triage completed. ha1 06:40 Alina Pierre, ASHLY is Primary Nurse. kd3 07:00 Arm band placed on. bp 07:05 Carlos Funes MD is Attending Physician. michelle 07:32 CXR XRAY In Process Unspecified. EDMS 09:06 Adrian Fox MD is Referral Physician. michelle 09:06 Wilfredo Call MD is Referral Physician. michelle 09:21 Patient has correct armband on for positive identification. bp 09:21 No provider procedures requiring assistance completed. Patient did not have IV access bp during this emergency room visit. Administered Medications: 06:47 Drug: DuoNeb Nebulize (3:1) (2.5 mg - 0.5 mg) 3 ml Nebulizer once Route: Nebulizer; kd3 09:21 Follow up: Response: No adverse reaction bp 09:00 Drug: AZITHromycin PO 500 mg PO once Route: PO; bp 09:21 Follow up: Response: No adverse reaction bp 09:00 Drug: Ibuprofen PO 800 mg PO once Route: PO; bp 09:21 Follow up: Response: No adverse reaction bp Medication: 09:21 VIS not applicable for this client. bp Outcome: : Discharge ordered by MD. martinez 09: Discharged to home ambulatory, bp 09:21 Condition: stable :21 Discharge instructions given to patient, Instructed on discharge instructions, follow up and referral plans. medication usage, Demonstrated understanding of instructions, follow-up care, medications, Prescriptions given X 2, : Patient left the ED. bp Signatures: Dispatcher [employer] EDMS Carlos Funes MD MD cha Peltier, Brian, RN RN Alina Gonzales RN RN kd3 Ebonie Ricketts RN RN 1 Louise Antonio 2
[2025-06-13 10:21] VITALS: TEMP 98.7
[2025-06-13 10:23] VITALS: BP 142/83; O2SAT 96
== END 2025-06-13 09:23 | disposition home or self-care (01) ==
LOC: ER 06:15
DX: J45.31 Mild persistent asthma with (acute) exacerbation (principal); J45.991 Cough variant asthma
CPT/HCPCS: 71045; 99284; J7613; J7644